=== PATIENT | female | born 1970 | race Caucasian/White ===

== ENCOUNTER 2019-10-28 13:38 | Emergency (ER) | payer SELFPAY ==
--- NOTE | 2019-10-28 13:51 | ED_ITS ---
HPI - Abdominal Pain General: Chief Complaint: Abdominal Pain Stated Complaint: abd pain Time Seen by Provider: 10/28/19 13:51 History of Present Illness: HPI narrative: Pt states she has had episodes of abd pain for over 2 years but over the past month it has gotten much worse. She has had 3 episodes this week. She used to be able to know what foods caused it but now it is anything. Severe nausea, no vomiting. No fever, thinks it is her leno REDDING elicited complaint: abdominal pain Onset (ago): month(s) Pain Consistency: intermittent Location: Epigastric and RUQ Severity: similar to previous episodes Quality: cramping and stabbing Radiation: R flank and back Migration to: R flank Exacerbating factors: eating Relieving factors: nothing Associated Symptoms: Reports anorexia, bloating, nausea and poor appetite; Denies constipation, diarrhea and fever(s) Review of Systems General: Reports: 10 or more systems reviewed and unremarkable except in HPI and below Const: Denies: fever ENMT: Denies: throat pain Card: Denies: chest pain or swelling of feet/ankles Resp: Denies: shortness of breath or productive cough GI: Reports: abdominal pain, nausea and bloating; Denies: diarrhea or constipation : Denies: difficulty urinating Musc: Reports: back pain; Denies: extremity swelling Skin/Breast: Denies: rash Neuro: Denies: headache, numbness in extremities or weakness in extremities PFSH ED PFSH: Social History Smoking and tobacco status: never smoked Physical Exam Const: COMMON NORMALS: no apparent distress and oriented x3 GENERAL APPEARANCE: cooperative; not in distress HENMT: COMMON NORMALS: normocephalic HEAD & SCALP: normal to inspection and normocephalic MOUTH: oral and palatal mucosa normal and lip normal THROAT: posterior oropharynx normal and tonsils normal Neck/C-Spine: COMMON NORMALS: full ROM, no lymphadenopathy, supple and no meningeal signs GENERAL: Yes normal visual inspection and Yes trachea midline Chest: COMMONS NORMALS: inspection of chest normal Resp: COMMON NORMALS: normal respiratory effort and clear to auscultation bilaterally EFFORT & INSPECTION: Yes able to speak in complete sentences and No respiratory distress AUSCULTATION: clear to auscultation bilaterally, no rales, no rhonchi and no wheezes Cardio: COMMON NORMALS: regular rate, regular rhythm, S1 normal heart sound, S2 normal heart sound and no murmurs RATE: regular rate RHYTHM: regular rhythm HEART SOUNDS: S1 normal and S2 normal PERIPHERAL PULSES: radial pulses present and dorsalis pedis pulses present GI: COMMON NORMALS: soft to palpation INSPECTION: Yes normal to inspection AUSCULTATION: Yes normoactive bowel sounds PALPATION: Yes soft, Yes tender Details: RUQ and other (epigastric) and No guarding RECTAL EXAM: deferred : COMMON NORMALS: Yes no CVA tenderness BLADDER/KIDNEY EXAM: Yes no CVA tenderness Back/Pelvis: COMMON NORMALS: no CVA tenderness Extremity: COMMON NORMALS: normal to inspection, full ROM, normal capillary refill, no calf tenderness and no pedal edema Neuro: COMMON NORMALS: oriented x3, CN's II-XII intact bilaterally, moves all extremities and no focal motor deficits MENINGEAL SIGNS: Yes no meningeal signs Skin: COMMON NORMALS: no rashes or lesions noted GENERAL SKIN EXAM: no rashes or lesions noted Course Vital Signs: Vital signs: Vital Signs Temperature 97.8 F 10/28/19 13:54 Pulse Rate 124 H 10/28/19 13:54 Respiratory Rate 17 10/28/19 15:40 Blood Pressure 151/96 10/28/19 13:54 Pulse Oximetry 99 10/28/19 13:54 MDM - Abdominal Pain MDM Narrative: Medical decision making narrative: Pt has a gall stone but no signs of cholecystitis, no cbd obstruction, lfts are all normal, no fever. Pt is tolerating pos well. She states she wants to f/u with Dr theodore as she has a relationship with him from her mother. I offerred to set her up with our gen surgeon but she declined. She will eat low fat and take pain meds and nausea meds as needed and return if worsens. she states she wants to go home and f/u with surgery as outpt. Lab Data: Attestation: I reviewed the patient's lab results. Labs: Lab Results 10/28/19 10/28/19 10/28/19 Range/Units 14:35 14:40 14:40 WBC 6.9 (4.0-10.0) 10^3/ uL RBC 4.60 (4.1-5.3) 10^6/u L Hgb 14.2 (11.5-15.3) g/dL Hct 43.8 (37.0-47.0) % MCV 95.2 (81-99) fL MCH 30.9 (28.0-34.0) pg MCHC 32.4 (30.0-36.0) g/dL RDW 12.4 (12.1-15.1) % Plt Count 384 (130-400) 10^3/c mm MPV 8.7 (7.4-10.4) fL Neut % (Auto) 55.3 % Lymph % (Auto) 31.3 % [place] % (Auto) 7.9 % Eos % (Auto) 3.9 % Baso % (Auto) 1.3 % Neut # (Auto) 3.8 (1.8-7.7) 10^3/u L Lymph # (Auto) 2.2 (0.8-4.8) 10^3/u L [place] # (Auto) 0.5 (0.2-0.9) 10^3/u L Eos # (Auto) 0.3 (0.0-0.8) 10^3/u L Baso # (Auto) 0.1 (0.0-0.1) 10^3/u L Nucleated RBC % (a uto) 0 % Nucleated RBCs # 0.0 /100WBC Sodium 134 L (136-145) mmol/L Potassium 3.6 (3.5-5.1) mmol/L Chloride 97 L (98-107) mmol/L Carbon Dioxide 25 (22-29) mmol/L Anion Gap 15.6 (5-19) BUN 6 (6-20) mg/dL Creatinine 0.7 (0.5-0.9) mg/dL GFR Calculation 89.3 L (90-130) mL/min Glucose 116 H (65-115) mg/dL Calculated Osmolal ity 275 L (285-295) mOsm/k g Calcium 10.1 (8.5-10.5) mg/dL Total Bilirubin 0.5 (0.15-1.2) mg/dL AST 26 (0-32) U/L ALT 23 (0-33) U/L Alkaline Phosphata se 96 (35-105) IU/L Total Protein 8.6 (6.6-8.7) g/dL Albumin 5.3 H (3.5-5.2) g/dL Globulin 3.3 (1.3-4.6) g/dL Lipase 22 (13-60) U/L Urine Color Yellow (Yellow) Urine Appearance Clear (CLEAR) Urine pH 7 (5-7) Ur Specific Gravit y 1.005 (1.005-1.030) Urine Protein Neg (Negative) Urine Glucose (UA) Norm (Normal) Urine Ketones Negative (Negative) Urine Blood Neg (Negative) Urine Nitrate Negative (Negative) Urine Bilirubin Neg (NEGATIVE) Urine Urobilinogen Norm (Negative) mg/dL Ur Leukocyte Emeli ase Negative (Negative) Imaging Data ^: US: Radiologist's impression: [address] [address] Ultrasound Report Signed Patient: Dalila Fernandez #: [id number] : 1970Acct#:[id number] Age/Sex: 49 / FADM Date: 10/28/19 Loc: ERRoom/Bed: Attending Dr: Ordering Provider/Ordering MD: Cece Davidson DO Date of Service: 10/28/19 Procedure(s): US gall bladder 30079 Accession Number(s): [id number] Report Number: [id number] PROCEDURE INFORMATION: Exam: US Abdomen Limited, Right Upper Quadrant Exam date and time: 10/28/2019 3:37 PM Age: 49 years old Clinical indication: Abdominal pain; Epigastric; Additional info: Right abd pain TECHNIQUE: Imaging protocol: Real-time ultrasound of the abdomen with image documentation. Examination was focused on the right upper quadrant. COMPARISON: No relevant prior studies available. FINDINGS: Liver: The liver is normal. 13.3 cm in length. Gallbladder: The gallbladder contains echogenic sludge. There is a large gallstone within the gallbladder. The wall is not thickened, 2 mm. There is no pericholecystic fluid. Tenderness was reported when scanning the right upper quadrant. Common bile duct: The bile ducts are not dilated. The common bile duct measures 5 mm in maximal diameter. Pancreas: The pancreas was incompletely visualized. It is within normal limits as visualized. Right kidney: Normal. No mass. No hydronephrosis. Aorta: Within normal limits as visualized. IVC: Within normal limits as visualized. US/US gall bladder [id number] IMPRESSION: 1. Cholelithiasis. No wall thickening or pericholecystic fluid. Tenderness reported when scanning the right upper quadrant. 2. Normal bile ducts. Dictated By:Xavier Gil MD Signed By:Xavier Gil MDSigned Date/Time:10/28/19 0064 Discharge Plan Discharge Condition: Stable Prescriptions: No Action Tylenol 325 mg Tablet 325 mg PO QID PRN (Reason: Pain) RF: 0 Allergy 4-Hour 4 mg Tablet 4 mg PO DAILY RF: 0 Referrals: Agustin Pino MD [Primary Care Provider] - Priyank Galo MD [Family Provider] - Coding Level of Care Code ED Network/Telecom Engineer for Chg Fwd Exam Comprehensive
[2019-10-28 13:54] VITALS: BP 151/96; PULSE 124; RESP 17; TEMP 36.6; O2SAT 99; BMI 23.0
[2019-10-28 14:17] VITALS: RESP 17
--- NOTE | 2019-10-28 14:23 | USR_ITS ---
PROCEDURE INFORMATION: Exam: US Abdomen Limited, Right Upper Quadrant Exam date and time: 10/28/2019 3:37 PM Age: 49 years old Clinical indication: Abdominal pain; Epigastric; Additional info: Right abd pain TECHNIQUE: Imaging protocol: Real-time ultrasound of the abdomen with image documentation. Examination was focused on the right upper quadrant. COMPARISON: No relevant prior studies available. FINDINGS: Liver: The liver is normal. 13.3 cm in length. Gallbladder: The gallbladder contains echogenic sludge. There is a large gallstone within the gallbladder. The wall is not thickened, 2 mm. There is no pericholecystic fluid. Tenderness was reported when scanning the right upper quadrant. Common bile duct: The bile ducts are not dilated. The common bile duct measures 5 mm in maximal diameter. Pancreas: The pancreas was incompletely visualized. It is within normal limits as visualized. Right kidney: Normal. No mass. No hydronephrosis. Aorta: Within normal limits as visualized. IVC: Within normal limits as visualized. US/US gall bladder [id number] IMPRESSION: 1. Cholelithiasis. No wall thickening or pericholecystic fluid. Tenderness reported when scanning the right upper quadrant. 2. Normal bile ducts.
--- NOTE | 2019-10-28 14:36 | PC.NURSE ---
Pt refusing IV and IV pain meds. Dr. Davidson informed.
[2019-10-28 14:51] LABS: Basophils # 0.1 10^3/uL (0.0-0.1); Basophils % 1.3 %; Eosinophils # 0.3 10^3/uL (0.0-0.8); Eosinophils % 3.9 %; Hematocrit 43.8 % (37.0-47.0); Hemoglobin 14.2 g/dL (11.5-15.3); Lymphocytes # 2.2 10^3/uL (0.8-4.8); Lymphocytes % 31.3 %; Mean Corpuscular HGB Conc 32.4 g/dL (30.0-36.0); Mean Corpuscular Hemoglobin 30.9 pg (28.0-34.0); Mean Corpuscular Volume 95.2 fL (81-99); Mean Platelet Volume 8.7 fL (7.4-10.4); Monocytes # 0.5 10^3/uL (0.2-0.9); Monocytes % 7.9 %; Neutrophils # 3.8 10^3/uL (1.8-7.7); Neutrophils % 55.3 %; Nucleated Red Blood Cells % 0 %; Platelet Count 384 10^3/cmm (130-400); Red Cell Distribution Width 12.4 % (12.1-15.1); White Blood Count 6.9 10^3/uL (4.0-10.0)
[2019-10-28 14:53] LABS: Add Urine Microscopic? NO
[2019-10-28 14:59] LABS: Bilirubin Urine Neg (NEGATIVE); Blood Urine Neg (Negative); Glucose Urine UA Norm (Normal); Ketones Urine Negative (Negative); Leukocyte Esterase Urine Negative (Negative); Nitrate Urine Negative (Negative); Protein Urine Neg (Negative); Specific Gravity, Urine 1.005 (1.005-1.030); Urine Appearance Clear (CLEAR); Urine Color Yellow (Yellow); Urobilinogen Urine Norm (Negative); pH Urine 7 (5-7)
[2019-10-28 15:16] LABS: Alanine Aminotransferase 23 U/L (0-33); Albumin Level 5.3 g/dL (3.5-5.2); Alkaline Phosphatase 96 IU/L (35-105); Anion Gap 15.6 (5-19); Aspartate Amino Transferase 26 U/L (0-32); Blood Urea Nitrogen 6 mg/dL (6-20); Calcium 10.1 mg/dL (8.5-10.5); Carbon Dioxide 25 mmol/L (22-29); Chloride 97 mmol/L (98-107); Globulin 3.3 g/dL (1.3-4.6); Glomerular Filtration Rate 89.3 mL/min (90-130); Glucose 116 mg/dL (65-115); Lipase 22 U/L (13-60); Osmolality Calculated 275 mOsm/kg (285-295); Potassium 3.6 mmol/L (3.5-5.1); Sodium 134 mmol/L (136-145); Total Bilirubin 0.5 mg/dL (0.15-1.2); Total Protein 8.6 g/dL (6.6-8.7)
[2019-10-28 15:40] VITALS: RESP 17
[2019-10-28 16:48] VITALS: BP 126/87; PULSE 99; RESP 17; O2SAT 100
== END 2019-10-28 16:49 | disposition home or self-care (01) ==
PROVIDERS: Emergency Provider Emergency Medicine; Family Provider Internal Medicine; PCP Internal Medicine
DX: K80.20 Calculus of gallbladder without cholecystitis without obstruction (principal)
CPT/HCPCS: 12345; 36415; 76705; 80053; 81003; 83690; 85025; 87040; 99283; A9270